=== PATIENT | male | born 1995 | race Caucasian/White ===

== ENCOUNTER 2020-05-20 18:12 | Emergency (ER) | payer MEDICAID, SELFPAY ==
[2020-05-20 18:17] VITALS: BP 139/87; PULSE 122; RESP 16; TEMP 37; O2SAT 98
--- NOTE | 2020-05-20 18:41 | W.ED.GENAD ---
Discharge Plan Disposition Patient Disposition: HOME Discharge Details Chief Complaint: RashLesion Clinical Impression: Tick bite Primary Care Provider: None,None ED Provider: [facility] Home Meds and New Rx's Prescriptions: Continued ibuprofen 600 MG tablet 600 mg PO Q6H PRN (Reason: Pain) Qty: 16 RF: 0 Discharge Instructions Instructions: Tick Bite (ED) Additional Instructions: A single dose of doxycycline has been given today. I recommend [id number] Benadryl and hydrocortisone cream as directed. Cool compresses every 2 hours for 20 minutes. Please watch for new or worsening symptoms and return to the ER for any concerns. Medical Decision Making Patient presents with a tick bite that could not been attached for longer than 24-36 hours. Denies any fever, rash elsewhere in his body, joint pain, numbness, tingling, weakness. We discussed our options, extremely low suspicion for transmission of Lyme disease given his presentation, symptoms, and timeframe. Will provide a single dose of 200 mg p.o. doxycycline and will treat the localized pruritus as an insect bite with hydrocortisone cream and Benadryl. Patient comfortable with this plan has no additional questions or concerns. Medical Records Medical records reviewed: Yes I reviewed the patient's medical records. HPI General Mode of arrival: ambulatory. Date/Time Provider Initiated Documentation: 05/20/20 18:25. Limitations to Documentation: no limitations. Information obtained by: patient. HPI Narrative: Patient reports that he was bit on the left side of his abdomen on May 15 or , noticed the tick the evening of the . It was not fully engorged. He has been asymptomatic up until today and now reports that the site of the tick bite is slightly red and itchy. He denies any fever, joint pain, muscle pain or weakness, rash elsewhere on his body. He has not taken any medications for his symptoms. Related Data Home Medications Medication Instructions Recorded Confirmed ibuprofen 600 mg PO Q6H PRN #16 tab 05/02/18 Previous Rx's Medication Instructions Recorded ibuprofen 600 mg PO Q6H PRN #16 tab 05/02/18 Allergies Allergy/AdvReac Type Severity Reaction Status Date / Time No Known Allergies Allergy Unverified 05/20/20 18:24 General Stated Complaint: RashLesion SWAPNA: 4 Review of Systems Constitutional Constitutional: Denies fever(s) and Denies weakness Gastrointestinal Gastrointestinal: Denies abdominal pain and Denies nausea Musculoskeletal Musculoskeletal: Denies myalgias, Denies arthralgias, Denies numbness and Denies tingling Integumentary/Breasts Skin/Breast: Reports erythema Neurologic Neurologic: Denies numbness, Denies tingling and Denies weakness [facility] Social History Smoking/Tobacco Use Status: Current-Occasional Alcohol Intake: current Drug use: Never Substance use type: marijuana Do you feel safe in your relationship?: Yes Exam Const General: cooperative, healthy appearing, comfortable and no acute distress Orientation: alert and awake HENWI Head: normal to inspection, normocephalic and atraumatic Mouth: moist mucous membranes Eyes Conjunctivae: conjunctivae normal Neck Neck: normal visual inspection, trachea midline and supple Resp Effort & Inspection: normal respiratory effort and able to speak in complete sentences Auscultation: clear to auscultation bilaterally Cardio Rate: regular rate Rhythm: regular rhythm GI Palpation: soft and nontender Skin General skin exam: no rashes or lesions noted Other: Left flank, dime sized area of blanchable, papular erythema. There is no warmth, induration, fluctuance, bull's-eye-like rash. Neuro General: patient alert, patient awake, moves all extremities and no focal motor deficits Sensory Exam: no sensory deficits noted Extrem General: normal to inspection, full ROM and capillary refill normal Psych Appearance: grossly normal Mental Status: mental status grossly normal Course Vital Signs Vital signs: Vital Signs Temperature 37 C 05/20/20 18:17 Pulse 122 H 05/20/20 18:17 Respiratory Rate 16 05/20/20 18:17 Blood Pressure 139/87 05/20/20 18:17 Pulse Oximetry 98 05/20/20 18:17 Temperature 37 C 05/20/20 18:17 Temperature Source Temporal Artery Scan 05/20/20 18:17 Pulse 122 H 05/20/20 18:17 Respiratory Rate 16 05/20/20 18:17 Respiratory Effort 05/20/20 18:21 Blood Pressure 139/87 05/20/20 18:17 Pulse Oximetry 98 05/20/20 18:17 Oxygen Delivery Method Room Air 05/20/20 18:17 Oxygen Flow Rate 0 05/20/20 18:17
[2020-05-20] MEDS: Doxycycline Hyclate 100 MG CAP 200 MG PO (18:54)
== END 2020-05-20 19:09 | disposition home or self-care (01) ==
PROVIDERS: Emergency Provider Physician Assistant
DX: S30.861A Insect bite (nonvenomous) of abdominal wall, initial encounter (principal); R21 Rash and other nonspecific skin eruption; L29.9 Pruritus, unspecified; W57.XXXA Bitten or stung by nonvenomous insect and other nonvenomous arthropods, initial encounter
CPT/HCPCS: 99283

== ENCOUNTER 2021-10-16 08:48 | Emergency (ER) | payer OTHER, SELFPAY ==
[2021-10-16 08:56] VITALS: BP 156/93; PULSE 89; RESP 18; TEMP 37.5; O2SAT 99
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
--- NOTE | 2021-10-16 09:55 | DI.RAD_ITS ---
Exam(s) XR CHEST 2V PA LATERAL EXAM: XR CHEST 2V PA LATERAL CLINICAL HISTORY: left sided pain, s/p fall TECHNIQUE: 2D digital imaging was performed of the chest. Two images were obtained. PA and lateral views were obtained. COMPARISON: No exams were available for comparison FINDINGS: MEDIASTINUM: Normal. HEART: Normal. PULMONARY VASCULATURE: Normal. LUNGS: Clear. PLEURAL SPACE: No pleural effusion or pneumothorax. BONE:Within normal limits for the patient's age. OTHER FINDINGS:Normal. IMPRESSION: No acute pulmonary findings. DATA REPOSITORY: RADIATION DOSE DELIVERED:
--- NOTE | 2021-10-16 09:57 | DI.RAD_ITS ---
Exam(s) XR LUMBAR SPINE COMPLETE EXAM: XR LUMBAR SPINE COMPLETE CLINICAL HISTORY: pain post fall. TECHNIQUE: 2D digital imaging was performed of the lumbar spine. Five images were obtained. AP, la teral, right oblique, left oblique and L5-S1 spot views were obtained. COMPARISON: No exams were available for comparison FINDINGS: BONES: No fracture or destructive lesion. Vertebral bodies are unremarkable. No facet hypertrophy rahat ntified. DISKS: Intervertebral disc spaces are maintained. ALIGNMENT: Lumbar spinal alignment is within normal limits. No spondylolysis or spondylolisthesis. SOFT TISSUE: Normal. IMPRESSION: Unremarkable radiographs of the lumbar spine. DATA REPOSITORY: RADIATION DOSE DELIVERED:
--- NOTE | 2021-10-16 09:58 | DI.RAD_ITS ---
Exam(s) XR THORACIC SPINE COMPLETE EXAM: XR THORACIC SPINE COMPLETE CLINICAL HISTORY: pain post fall. TECHNIQUE: 2D digital imaging was performed of the thoracic spine. Five views were obtained. AP, s anton's and lateral views were obtained. COMPARISON: No exams were available for comparison FINDINGS: BONES: There is no fracture or destructive lesion. The vertebral bodies and posterior elements are un remarkable. DISKS:Alignment is within normal limits. Interverebral disc spaces are maintained. SOFT TISSUE: Visualized lungs are clear. IMPRESSION: Unremarkable radiographs of the thoracic spine. DATA REPOSITORY: RADIATION DOSE DELIVERED:
[2021-10-16] MEDS: Acetaminophen 325 MG TAB 650 MG PO (10:23)
[2021-10-16] MEDS: Ibuprofen 600 MG TAB PO (10:23)
== END 2021-10-16 10:30 | disposition home or self-care (01) ==
PROVIDERS: Emergency Provider Physician Assistant; PCP Internal Medicine
DX: S29.012A Strain of muscle and tendon of back wall of thorax, initial encounter (principal); S39.012A Strain of muscle, fascia and tendon of lower back, initial encounter; S20.212A Contusion of left front wall of thorax, initial encounter; W00.0XXA Fall on same level due to ice and snow, initial encounter
CPT/HCPCS: 99284; 71046; 72072; 72110; 99283

== ENCOUNTER 2021-11-04 14:28 | Emergency (ER) | payer MEDICAID, SELFPAY ==
[2021-11-04 14:34] VITALS: BP 154/92; PULSE 105; RESP 18; TEMP 36.7; O2SAT 99
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
== END 2021-11-04 16:49 | disposition home or self-care (01) ==
PROVIDERS: Emergency Provider Nurse Practitioner Family; PCP Internal Medicine
DX: S61.216A Laceration without foreign body of right little finger without damage to nail, initial encounter (principal); W26.8XXA Contact with other sharp object(s), not elsewhere classified, initial encounter
CPT/HCPCS: 12001

== ENCOUNTER 2021-11-14 11:12 | Emergency (ER) | payer MEDICAID, SELFPAY ==
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
[2021-11-14 11:15] VITALS: BP 133/85; PULSE 94; RESP 18; TEMP 36.4; O2SAT 97
== END 2021-11-14 11:25 | disposition home or self-care (01) ==
LOC: ER 11:18
PROVIDERS: Emergency Provider Registered Nurse Emergency; PCP Internal Medicine
DX: S61.411D Laceration without foreign body of right hand, subsequent encounter (principal); W26.8XXD Contact with other sharp object(s), not elsewhere classified, subsequent encounter; Z48.02 Encounter for removal of sutures

== ENCOUNTER 2022-04-13 20:03 | Emergency (ER) | payer MEDICAID, SELFPAY ==
--- NOTE | 2022-04-13 20:00 | DI.RAD_ITS ---
Exam(s) XR KNEE LT 3V AP,LAT,VICENTA EXAM: XR KNEE LT 3V AP,LAT,VICENTA CLINICAL HISTORY: recent patella dislocation, eval for fx. TECHNIQUE: 2D digital imaging was performed. Three views. COMPARISON: CR RIGHT KNEE 3 VIEWS from 12/27/2010 FINDINGS: BONES: No acute fracture is present. No bony destructive lesion is seen. marginated bony density se en adjacent to the tibial tubercle. JOINTS: Joint spaces are well maintained. The knee is normally aligned. No joint effusion is seen. SOFT TISSUE: Normal. IMPRESSION: No acute abnormality. DATA REPOSITORY: RADIATION DOSE DELIVERED:
[2022-04-13 20:06] VITALS: BP 141/72; PULSE 113; RESP 18; TEMP 37; O2SAT 99
[2022-04-13] MEDS: Acetaminophen 500 MG TAB 1000 MG PO (20:16)
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
--- NOTE | 2022-04-13 21:39 | DI.VRAD_ITS ---
PROCEDURE INFORMATION: Exam: XR Left Knee Exam date and time: 04/13/2022 20:46 Age: 27 years old Clinical indication: Injury or trauma; Fall; Blunt trauma; Knee; Left; Injury date: 04/13/22; Injury details: Recent patella dislocation, eval for FX TECHNIQUE: Imaging protocol: XR Left knee. Views: 3 views. COMPARISON: No relevant prior studies available. FINDINGS: Bones/joints: No acute fracture or subluxation. Chronic appearing mild avulsion deformity of the tibial tuberosity. Soft tissues: Mild swelling in the anterior knee. Sliver of joint fluid. IMPRESSION: 1. No acute bony pathology. 2. Chronic appearing mild avulsion deformity of the tibial tuberosity. Dictated and Authenticated by: Padmini Jorgensen MD. Ordering:PRATIK Giordano MD
== END 2022-04-13 21:51 | disposition home or self-care (01) ==
PROVIDERS: Emergency Provider Student in an Organized Health Care Education/Training Program; PCP Internal Medicine
DX: S83.095A Other dislocation of left patella, initial encounter (principal); X58.XXXA Exposure to other specified factors, initial encounter
CPT/HCPCS: 73562; 99283

== ENCOUNTER 2022-04-16 11:16 | Outpatient (CLI) | payer MEDICAID, SELFPAY ==
--- NOTE | 2022-04-16 10:30 | DI.RAD_ITS ---
Exam(s) XR KNEE LT 1V EXAM: XR KNEE LT 1V CLINICAL HISTORY: L patella dislocation. TECHNIQUE: 2D digital imaging was performed. COMPARISON: CR,XR XR KNEE LT 3V AP,LAT,VICENTA from 04/13/2022 FINDINGS: Single merchant's view No patellar displacement nor narrowing of the patellofemoral compartment. Density projected in lateral aspect of the patellofemoral compartment corresponds to sesamoid bone se en within the inferior aspect of the patellar ligament, seen on the lateral image of 04/13/2022 IMPRESSION: DATA REPOSITORY: RADIATION DOSE DELIVERED:
== END 2022-04-16 11:17 | disposition home or self-care (01) ==
LOC: DIORS 11:17
PROVIDERS: PCP Internal Medicine; Referring Provider Internal Medicine; Visit Provider Physician Assistant
DX: M25.562 Pain in left knee (principal); S83.095A Other dislocation of left patella, initial encounter
CPT/HCPCS: 73560

== ENCOUNTER 2024-12-12 07:33 | Emergency (ER) | payer SELFPAY ==
[2024-12-12 07:35] VITALS: BP 145/80; PULSE 79; RESP 20; TEMP 38.4; O2SAT 98
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
[2024-12-12] MEDS: Acetaminophen 500 MG TAB 1000 MG PO (07:50)
[2024-12-12] MEDS: Ibuprofen 400 MG TAB PO (07:50)
[2024-12-12 08:42] VITALS: BP 140/82; PULSE 90; RESP 16; TEMP 37.7; O2SAT 97
[2024-12-12 09:09] VITALS: TEMP 37.5
== END 2024-12-12 09:09 | disposition home or self-care (01) ==
PROVIDERS: Emergency Provider Emergency Medicine; PCP Nurse Practitioner Family
DX: J06.9 Acute upper respiratory infection, unspecified (principal); R05.1 Acute cough; R50.9 Fever, unspecified
CPT/HCPCS: 99283